=== PATIENT | female | born 1965 | race Caucasian/White ===

== ENCOUNTER → 2016-04-27 | Outpatient (CLI) | payer OTHER | END | disposition home or self-care (01) | LOC: MAMMO 12:53 | PROVIDERS: ATTEND Physician Assistant Medical | DX: Z12.31 Encounter for screening mammogram for malignant neoplasm of breast (principal); Z01.419 Encounter for gynecological examination (general) (routine) without abnormal findings | CPT/HCPCS: G0202; 77067 ==

== ENCOUNTER → 2016-05-11 | Outpatient (CLI) | payer OTHER ==
--- NOTE | 2016-05-11 15:14 | RAD ---
EXAM: BREAST RIGHT, DIGITAL DIAGNOSTIC RT. HISTORY: Abnormal screening mammogram. COMPARISON: Bilateral mammogram 04/27/2016 and 08/28/2013. FINDINGS: Digital mammography was performed. Computer-aided detection (CAD) was utilized. Spot compression magnification views of the right breast were obtained in the CC and MLO projections. A true lateral view of the right breast was also obtained. The spot compression view demonstrates questionable persistence of a small asymmetry, although the asymmetry on MLO view is not convincingly persistent on the spot compression view. No convincing asymmetry is identified on the true lateral view. A few scattered calcifications are seen in the left breast which do not appear to be associated with a mammographic mass. The calcifications do not appear sufficiently clustered or suspicious. To exclude presence of mass in the retroareolar region, right breast ultrasound was performed. Retroareolar imaging was performed by radiologic technologist mammogram. No solid or cystic masses are identified. IMPRESSION: No mammographic or sonographic evidence of retroareolar mass. Recommend return to annual screening mammography. BI-RADS CATEGORY: 2 BENIGN FINDING(S) RECOMMENDED FOLLOW-UP: 12M 12 MONTH FOLLOW-UP PQRS compliance statement: Patient information was entered into a reminder system with a target due date for the next mammogram. Mammography is a sensitive method for finding small breast cancers, but it does not detect them all and is not a substitute for careful clinical examination. A negative mammogram does not negate a clinically suspicious finding and should not result in delay in biopsying a clinically suspicious abnormality. "Our facility is accredited by the [employer] Mammography Program."
== END | disposition home or self-care (01) ==
LOC: MAMMO 13:41
PROVIDERS: ATTEND Physician Assistant Medical
DX: R92.8 Other abnormal and inconclusive findings on diagnostic imaging of breast (principal); R92.1 Mammographic calcification found on diagnostic imaging of breast
CPT/HCPCS: 76641; G0206; 77065

== ENCOUNTER → 2017-05-17 | Outpatient (CLI) | payer OTHER ==
--- NOTE | 2017-05-17 16:08 | RAD ---
DATE: 05/17/2017 EXAM: MAMMO DARLIN SCREENING BILATERAL HISTORY: Routine screening COMPARISON: 04/27/2016 This study was interpreted with the benefit of Computerized Aided Detection (CAD). The breast parenchyma is heterogeneously dense, which could reduce sensitivity of mammography. Breast parenchyma level C. FINDINGS: 2-D and 3-D tomosynthesis imaging was performed in CC and MLO projections. The fibroglandular densities in both breasts are somewhat nodular in nature. A 9 mm smooth nodule is noted centrally in the left breast, best seen on oblique darlin image #29. It appears to have been present in retrospect on the oblique view of the 08/28/2013 exam, although better defined currently due to the 3-D technique. No spiculated mass or architectural distortion is evident. A few scattered microcalcifications are again noted. No malignant type microcalcifications are evident. IMPRESSION: There is no mammographic evidence of malignancy in either breast. BI-RADS CATEGORY: 2 BENIGN FINDING(S) RECOMMENDED FOLLOW-UP: 12M 12 MONTH FOLLOW-UP PQRS compliance statement: Patient information was entered into a reminder system with a target due date for the next mammogram. Mammography is a sensitive method for finding small breast cancers, but it does not detect them all and is not a substitute for careful clinical examination. A negative mammogram does not negate a clinically suspicious finding and should not result in delay in biopsying a clinically suspicious abnormality. "Our facility is accredited by the [employer] Mammography Program."
== END | disposition home or self-care (01) ==
LOC: MAMMO 15:18
PROVIDERS: ATTEND Physician Assistant Medical
DX: Z12.31 Encounter for screening mammogram for malignant neoplasm of breast (principal)
CPT/HCPCS: 77063; 77067

== ENCOUNTER 2020-09-25 15:20 | Emergency (ER) | payer BC, OTHER ==
[~2020-09-25] VITALS: Ht 177.8 cm; Wt 104.5 kg
[2020-09-25 15:20] VITALS: BP 148/80
--- NOTE | 2020-09-25 15:27 | PHYS DOC ---
General Adult EDM: Chief Complaint: knee pain HPI: HPI: 55-year-old female presents via EMS for concern of dislocation of her right knee. The patient has bilateral knee replacements. She has had dislocations in the past. She was simply taking a step sideways when she felt her right knee go out of joint. There was a chair right there so she sat down. EMS padded the knee and brought her to the emergency room. The patient does not have any altered sensation, tingling, or numbness. She denies any other injuries or complaints at this time. Review of Systems: Review of Systems: Constitutional: Denies fever or chills Eyes: Denies change in visual acuity HENT: Denies nasal congestion or sore throat Respiratory: Denies cough or shortness of breath Cardiovascular: Denies chest pain or edema GI: Denies abdominal pain, nausea, vomiting, bloody stools or diarrhea : Denies dysuria Musculoskeletal: Right knee pain Integument: Denies rash Neurologic: Denies headache, focal weakness or sensory changes Endocrine: Denies polyuria or polydipsia Lymphatic: Denies swollen glands Psychiatric: Denies depression or anxiety Physical Exam: PE: Constitutional: Well developed, well nourished, obese, no acute distress, non- toxic appearance. [] HENT: Normocephalic, atraumatic, bilateral external ears normal, oropharynx moist, no oral exudates, nose normal. [] Eyes: PERRLA, EOMI, conjunctiva normal, no discharge. [] Neck: Normal range of motion, no tenderness, supple, no stridor. [] Cardiovascular: Heart rate regular rhythm, no murmur [] Lungs & Thorax: Bilateral breath sounds clear to auscultation [] Abdomen: Bowel sounds normal, soft, no tenderness, no masses, no pulsatile masses. [] Skin: Warm, dry, no erythema, no rash. [] Back: No tenderness, no CVA tenderness. [] Extremities: Right knee with inferior prominence anteriorly and medially. [] Neurologic: Alert and oriented X 3, normal motor function, normal sensory function, no focal deficits noted. [] Psychologic: Affect normal, judgement normal, mood normal. [] EKG: EKG: [] Radiology/Procedures: Radiology/Procedures: [] Heart Score: C/O Chest Pain: N/A Risk Factors: Risk Factors: DM, Current or recent (<one month) smoker, HTN, HLP, family history of CAD, obesity. Risk Scores: Score 0 - 3: 2.5% MACE over next 6 weeks - Discharge Home Score 4 - 6: 20.3% MACE over next 6 weeks - Admit for Clinical Observation Score 7 - 10: 72.7% MACE over next 6 weeks - Early Invasive Strategies Course & Med Decision Making: Course & Med Decision Making Pertinent Labs and Imaging studies reviewed. (See chart for details) Initial interpretation of the x-rays show the artificial joint to be in place. Careful examination showed is very hard to see the patella. This appears to be a patellar dislocation. The student customer success intern and I reduced the patient's patella dislocation. See note below for more details. The patient, much better since his procedure was complete. She was placed in a brace. She is stable for discharge at this time Patellar reduction procedure: I obtained verbal consent from the patient for reduction of her dislocated patella. No anesthesia was used as the patient declined. I straighten out her leg as the paramedics did not provide at the light lateral force on the patella. Just as we reached full extension, the patella spontaneously reduced back into position. Patient had immediate relief. A brace was applied. There were no complications. Patient is neurovascular intact post procedure. [] Dragon Disclaimer: Dragon Disclaimer: This electronic medical record was generated, in whole or in part, using a voice recognition dictation system. Departure Departure: Impression: Primary Impression: Dislocation of patella, right, closed Qualified Codes: S83.004A - Unspecified dislocation of right patella, initial encounter Disposition: HOME / SELF CARE / HOMELESS Condition: IMPROVED Referrals: GILBERTO ALSTON (PCP) Patient Instructions: Patellar Dislocation and Subluxation with [facility] YESENIA ARMSTRONG DO Sep 25, 2020 15:27
--- NOTE | 2020-09-25 16:28 | RAD ---
Exam: Right knee 3 views INDICATION: Dislocation, artificial knee TECHNIQUE: Frontal, lateral and oblique views of the right knee Comparisons: None FINDINGS: There is a large suprapatellar effusion. Right knee arthroplasty changes are noted. There is anterior dislocation of the tibia/polyethylene joint spaces are at the right knee joint relative to the femur . No acute fracture. IMPRESSION: Anterior dislocation of the tibia/polyethylene joint spaces are at the right knee joint. Electronically signed by: Anne Vital MD (09/25/2020 4:26 PM) [facility]
== END 2020-09-25 16:38 | disposition home or self-care (01) ==
LOC: ER 15:20
DX: S83.004A Unspecified dislocation of right patella, initial encounter (principal); W10.8XXA Fall (on) (from) other stairs and steps, initial encounter; Y93.89 Activity, other specified; Y92.89 Other specified places as the place of occurrence of the external cause; Y99.8 Other external cause status
CPT/HCPCS: 27562; 73562; 99284-25